=== PATIENT | male | born 1980 | race African-American/Black ===

== ENCOUNTER 2017-07-28 07:18 | Day surgery (SDC) | payer OTHER ==
[~2017-07-28 07:18] MED LIST: Lactated Ringers 1,000 ML IV SCH
[2017-07-28] MEDS ORDERED: Propofol 200 MG/20 ML SDV IV ONE (08:30)
[2017-07-28] MEDS ORDERED: Lidocaine 2% 100 MG/5 ML Syringe IVPUSH ONE (08:30)
[2017-07-28] MEDS ORDERED: Midazolam 1 MG/ML 2 ML SDV IV ONE (08:30)
--- NOTE | 2017-07-28 09:30 | PCM.OPNOTE ---
- General Post-Op/Procedure Note Date of Surgery/Procedure: 07/28/17 Operative Procedure(s): egd with bx. c scope with bx Findings: duodenitis gastritis proctitis Pre Op Diagnosis: bleeding per rectum Post-Op Diagnosis: duodenitis. gastritis. proctitis Anesthesia Technique: HEATHER Primary Surgeon: Sav Vazquez Anesthesia Provider: Jens Pozo Pathology: stomach, duodenum and rectum Complications: None Condition: Good Free Text/Narrative:: see dictation
[2017-07-28 11:28] VITALS: BP 118/66
--- NOTE | 2017-07-28 15:11 | OR ---
DATE OF OPERATION: 07/28/2017 SURGEON: Sav Vazquez MD PROCEDURE PERFORMED: Esophagogastroduodenoscopy and colonoscopy, both with cold forceps biopsy. PREOPERATIVE DIAGNOSIS: Bleeding per rectum. POSTOPERATIVE DIAGNOSIS: Gastric duodenitis and proctitis. INDICATIONS FOR PROCEDURE: This is a 36-year-old black male who is referred with a history of intermittent blood per rectum ranging from both black to dark red. In addition, he has a history of pancreatitis but is having some epigastric discomfort as well. As a result, he was offered upper and lower endoscopy. DESCRIPTION OF PROCEDURE: After an excellent IV sedation was administered, the bite block was inserted. The flexible endoscope was passed without difficulty down the patient's esophagus into the stomach. Stomach was insufflated. Scope was passed through the pylorus to the second portion duodenal and slowly withdrawn. The following findings were noted: In the second portion of the duodenum in the area of the ampulla of Vater, there was an area of irritation. This was biopsied and submitted in a separate container. The stomach demonstrated some diffuse mild gastritis and this was biopsied as well. GE junction measured at 40 cm and the esophagus was unremarkable. Attention was then turned to the colon. Digital rectal exam was performed. Flexible colonoscope was then inserted and advanced to the cecum. The prep was excellent. The following findings were noted: Ascending colon, unremarkable. Transverse colon, unremarkable. Descending colon, unremarkable. Sigmoid, unremarkable. Rectum, erythema and some punctate bleeding in the distal portion was encountered and this was biopsied with cold biopsy forceps and sent for permanent. Colon was deflated. Scope was removed. Patient tolerated the procedure well, was taken to recovery room in good condition. /[id number] /MODL
== END 2017-07-28 10:50 | disposition home or self-care (01) ==
LOC: FB.SDS 07:18
PROVIDERS: ATTEND Surgery
DX: K29.80 Duodenitis without bleeding (principal); K29.50 Unspecified chronic gastritis without bleeding; K62.89 Other specified diseases of anus and rectum; K85.20 Alcohol induced acute pancreatitis without necrosis or infection; I10 Essential (primary) hypertension; Z86.19 Personal history of other infectious and parasitic diseases; Z79.899 Other long term (current) drug therapy; Z98.890 Other specified postprocedural states
CPT/HCPCS: 43239; 45380; 88305; 88342; J2250; J2704; J7120

== ENCOUNTER 2018-12-08 03:00 | Emergency (ER) | payer BC, OTHER ==
[2018-12-08] MEDS ORDERED: Lidocaine 2% 20 ML MDV INJECT ONE (03:01)
[2018-12-08] MEDS ORDERED: Diphtheria,Pertussis(Acell),Tetanus Vaccine 0.5 ML SDV IM ONE (03:23)
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
[2018-12-08 04:06] VITALS: BP 115/88
== END 2018-12-08 04:00 | disposition home or self-care (01) ==
LOC: FB.ED 03:00
DX: S01.01XA Laceration without foreign body of scalp, initial encounter (principal); F10.129 Alcohol abuse with intoxication, unspecified; I10 Essential (primary) hypertension; Z23 Encounter for immunization; Y08.89XA Assault by other specified means, initial encounter
CPT/HCPCS: 12002; 90471; 90715; 99284; J2001; 90472

== ENCOUNTER 2020-03-18 08:18 | Day surgery (SDC) | payer BC ==
[~2020-03-18 08:18] MED LIST changes: +Sodium Chloride 0.9% 10 ML Syringe FLUSH PRN
[2020-03-18] MEDS ORDERED: Midazolam 1 MG/ML 2 ML SDV IV ONE (08:19)
[2020-03-18] MEDS ORDERED: Propofol 200 MG/20 ML SDV IV ONE (08:19)
[2020-03-18] MEDS ORDERED: Ketamine 500 mg/10 ML MDV IV ONE (08:19)
[2020-03-18] MEDS ORDERED: Lidocaine 2% 5 ML SDV INJECT ONE (08:19)
--- NOTE | 2020-03-18 10:12 | PCM.OPNOTE ---
- General Post-Op/Procedure Note Date of Surgery/Procedure: 03/18/20 Operative Procedure(s): c scope Findings: nl exam Pre Op Diagnosis: hx of abd pain , colon polyp Post-Op Diagnosis: nl exam Anesthesia Technique: MAC Primary Surgeon: Sav Vazquez Anesthesia Provider: Noelle Nicholson Pathology: none Complications: None Condition: Good Free Text/Narrative:: see dictation
[2020-03-18 11:33] VITALS: BP 126/95; PULSE 64
--- NOTE | 2020-03-19 08:04 | OR ---
DATE OF OPERATION: 03/18/2020 SURGEON: Sav Vazquez MD PROCEDURE PERFORMED: Colonoscopy. PREOPERATIVE DIAGNOSES: 1. History of left-sided abdominal pain. 2. Questionable history of colon polyp. POSTOPERATIVE DIAGNOSIS: Normal scope. INDICATIONS FOR PROCEDURE: This is a 39-year-old male referred with a history of some left-sided abdominal pain. On questioning, he has a questionable history of an adenomatous polyp. We recommended an endoscopy as part of his workup. DESCRIPTION OF OPERATION: After an excellent IV sedation was administered, digital rectal exam was performed. No marked abnormality was noted. Flexible colonoscope was inserted and advanced to the cecum. The prep was adequate. There were some areas of particulate food particles. We were able to irrigate and get a fair view of the intestine. The following findings were noted: Ascending colon, unremarkable. Transverse colon, unremarkable. Descending colon, unremarkable. Sigmoid and rectum, unremarkable. Colon was deflated as the scope was removed. The patient tolerated the procedure well, was taken to Recovery. /[id number] /BHAVINL
== END 2020-03-18 11:45 | disposition home or self-care (01) ==
LOC: FB.SDS 08:18
PROVIDERS: ATTEND Surgery
DX: R10.12 Left upper quadrant pain (principal); K62.5 Hemorrhage of anus and rectum; I10 Essential (primary) hypertension; F41.9 Anxiety disorder, unspecified; F32.9 Major depressive disorder, single episode, unspecified; Z20.828 Contact with and (suspected) exposure to other viral communicable diseases; Z98.890 Other specified postprocedural states; Z79.899 Other long term (current) drug therapy
CPT/HCPCS: J2001; J2250; J2704; J7120

== ENCOUNTER 2020-08-28 12:01 | Emergency (ER) | payer BC ==
[2020-08-28 12:14] VITALS: BP 107/48; PULSE 71
[2020-08-28] MEDS ORDERED: Sodium Chloride 0.9% 10 ML Syringe FLUSH PRN (12:32)
[2020-08-28] MEDS ORDERED: Ondansetron 4 MG/2 ML SDV IVPUSH ONE (12:48)
--- NOTE | 2020-08-28 12:50 | EDM.PDOC ---
ED HPI GENERAL MEDICAL PROBLEM - General Chief Complaint: Respiratory Problem Stated Complaint: COVID SYMPTOMS Time Seen by Provider: 08/28/20 12:05 Source of Information: Reports: Patient History Limitations: Reports: No Limitations - History of Present Illness INITIAL COMMENTS - FREE TEXT/NARRATIVE: Patient presented to the ED because of fever/chills, N/V/D which started 5 days ago. He also c/o persistent cough and dyspnea although his oxygen saturation is normal. Bilateral posterior shoulder Pain Score (Numeric/FACES): 9 - Related Data Allergies Allergy/AdvReac Type Severity Reaction Status Date / Time No Known Allergies Allergy Verified 08/28/20 12:08 Home Meds: Home Meds Citalopram Hydrobromide [Celexa] 20 mg PO DAILY 03/17/20 [History] Ibuprofen [Ibu] 800 mg PO Q8H PRN #30 tablet 08/28/20 [Rx] Ondansetron [Zofran ODT] 4 mg PO Q4H PRN #7 tab.dis 08/28/20 [Rx] metFORMIN [Glucophage XR] 500 mg PO WITHDINNER 08/28/20 [History] Past Medical History HEENT History: Reports: None Cardiovascular History: Respiratory History: Reports: None Gastrointestinal History: Reports: Helicobacter Pylori, Pancreatitis Genitourinary History: Reports: None 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 Musculoskeletal History: Reports: None Neurological History: Reports: None Psychiatric History: Reports: Anxiety, Depression Endocrine/Metabolic History: Reports: None, Diabetes, Type II Hematologic History: Reports: None Immunologic History: Reports: None Oncologic (Cancer) History: Reports: None Dermatologic History: Reports: None - Infectious Disease History Infectious Disease History: Reports: Helicobacter Pylori, Other (See Below) Other Infectious Disease History: CLAMYDIA - Past Surgical History Head Surgeries/Procedures: Reports: None GI Surgical History: Reports: Colonoscopy, EGD, ERCP Social & Family History - Family History Family Medical History: Noncontributory - Tobacco Use Tobacco Use Status *Q: Never Tobacco User - Caffeine Use Caffeine Use: Reports: Coffee, Energy Drinks, Tea - Recreational Drug Use Recreational Drug Use: No ED ROS GENERAL - Review of Systems Review Of Systems: See Below Constitutional: Reports: Fever, Chills, Malaise, Weakness HEENT: Reports: No Symptoms Respiratory: Reports: Shortness of Breath, Cough Cardiovascular: Reports: No Symptoms Endocrine: Reports: No Symptoms GI/Abdominal: Reports: Diarrhea, Nausea, Vomiting : Reports: No Symptoms, Discharge Musculoskeletal: Reports: No Symptoms, Neck Pain Skin: Reports: No Symptoms, Cyanosis Neurological: Reports: No Symptoms Psychiatric: Reports: No Symptoms Hematologic/Lymphatic: Reports: No Symptoms Immunologic: Reports: No Symptoms ED EXAM, GENERAL - Physical Exam Exam: See Below Exam Limited By: No Limitations General Appearance: Alert, No Apparent Distress Eye Exam: Bilateral Eye: PERRL Ears: Normal External Exam Nose: Normal Inspection, Normal Mucosa Throat/Mouth: Normal Inspection, Normal Lips, Normal Teeth Head: Atraumatic, Normocephalic Neck: Normal Inspection, Supple, Non-Tender, Full Range of Motion Respiratory/Chest: No Respiratory Distress, Lungs Clear, Normal Breath Sounds Cardiovascular: Normal Peripheral Pulses, Regular Rate, Rhythm, No Edema, No Gallop GI/Abdominal: Normal Bowel Sounds, Soft, Non-Tender, No Organomegaly Extremities: Normal Inspection, Normal Range of Motion, Non-Tender Neurological: Alert, Oriented, CN II-XII Intact Course - Vital Signs Text/Narrative:: Labs/CXR result was discussed with patient NS 1 L bolus Zofran 4 mg IV x1 Toradol 60 mg IM x1 Last Recorded V/S: Last Vital Signs Temp 36.3 C 08/28/20 12:01 Pulse 71 08/28/20 12:01 Resp 20 08/28/20 12:01 BP 107/48 L 08/28/20 12:01 Pulse Ox 98 08/28/20 12:01 - Orders/Labs/Meds Orders: Active Orders 24 hr Category Date Time Status Chest 1V Frontal [CR] Stat Exams 08/28/20 12:32 Ordered Ketorolac [Toradol] Med 08/28/20 14:10 Once 30 mg IVPUSH ONETIME ONE Sodium Chloride 0.9% [Normal Saline] 1,000 ml Med 08/28/20 13:00 Active IV ASDIRECTED Sodium Chloride 0.9% [Saline Flush] Med 08/28/20 12:32 Active 10 ml FLUSH ASDIRECTED PRN Isolation [COMM] Routine Oth 08/28/20 12:33 Ordered Saline Lock Insert [OM.PC] Routine Oth 08/28/20 12:32 Ordered Medication Orders Sodium Chloride (Normal Saline) 1,000 mls @ 999 mls/hr IV ASDIRECTED RICK Last Admin: 08/28/20 13:20 Dose: 999 mls/hr Documented by: DRKEVIN Ketorolac Tromethamine (Toradol) 30 mg IVPUSH ONETIME ONE Stop: 08/28/20 14:11 Sodium Chloride (Saline Flush) 10 ml FLUSH ASDIRECTED PRN PRN Reason: Keep Vein Open Labs: Laboratory Tests 08/28/20 08/28/20 08/28/20 Range/Units 12:48 12:48 12:48 WBC 4.2 L (4.5-12.0) X10-3/uL RBC 5.11 (4.30-5.75) x10(6)uL Hgb 15.6 (13.5-17.8) g/dL Hct 46.4 (30.0-51.3) % MCV 90.9 (80-96) fL MCH 30.5 (27.7-33.6) pg MCHC 33.6 (32.2-35.4) g/dL RDW 12.9 (11.5-15.5) % Plt Count 405 H (125-369) X10(3)uL MPV 7.2 L (7.4-10.4) fL Neut % (Auto) 70.0 (46-82) % Lymph % (Auto) 16.9 (13-37) % [place] % (Auto) 12.2 H (4-12) % Eos % (Auto) 0 L (1.0-5.0) % Baso % (Auto) 1 (0-2) % Neut # (Auto) 3.0 (1.6-8.3) # Lymph # (Auto) 0.7 (0.6-5.0) # [place] # (Auto) 0.5 (0.0-1.3) # Eos # (Auto) 0.0 (0.0-0.8) # Baso # (Auto) 0.0 (0.0-0.2) # Sodium 137 (135-145) mmol/L Potassium 3.5 (3.5-5.3) mmol/L Chloride 96 L (100-110) mmol/L Carbon Dioxide 31 (21-32) mmol/L BUN 23 H (7-18) mg/dL Creatinine 1.1 (0.70-1.30) mg/dL Est Cr Clr Drug Dosing 100.88 mL/min Estimated GFR (MDRD) > 60 (>60) BUN/Creatinine Ratio 20.9 H (9-20) Glucose 152 H (80-116) mg/dL Calcium 9.5 (8.6-10.2) mg/dL Total Bilirubin 0.7 (0.1-1.3) mg/dL AST 46 H (5-25) IU/L ALT 36 (12-36) U/L Alkaline Phosphatase 51 L (56-112) IU/L C-Reactive Protein 21.3 H* (0.5-0.9) mg/dL Total Protein 8.8 H (6.0-8.0) g/dL Albumin 2.7 L (3.5-5.2) g/dL Globulin 6.1 g/dL Albumin/Globulin Ratio 0.4 SARS-CoV-2 RNA (COMPA) (NEGATIVE) 08/28/20 Range/Units 12:50 WBC (4.5-12.0) X10-3/uL RBC (4.30-5.75) x10(6)uL Hgb (13.5-17.8) g/dL Hct (30.0-51.3) % MCV (80-96) fL MCH (27.7-33.6) pg MCHC (32.2-35.4) g/dL RDW (11.5-15.5) % Plt Count (125-369) X10(3)uL MPV (7.4-10.4) fL Neut % (Auto) (46-82) % Lymph % (Auto) (13-37) % [place] % (Auto) (4-12) % Eos % (Auto) (1.0-5.0) % Baso % (Auto) (0-2) % Neut # (Auto) (1.6-8.3) # Lymph # (Auto) (0.6-5.0) # [place] # (Auto) (0.0-1.3) # Eos # (Auto) (0.0-0.8) # Baso # (Auto) (0.0-0.2) # Sodium (135-145) mmol/L Potassium (3.5-5.3) mmol/L Chloride (100-110) mmol/L Carbon Dioxide (21-32) mmol/L BUN (7-18) mg/dL Creatinine (0.70-1.30) mg/dL Est Cr Clr Drug Dosing mL/min Estimated GFR (MDRD) (>60) BUN/Creatinine Ratio (9-20) Glucose (80-116) mg/dL Calcium (8.6-10.2) mg/dL Total Bilirubin (0.1-1.3) mg/dL AST (5-25) IU/L ALT (12-36) U/L Alkaline Phosphatase (56-112) IU/L C-Reactive Protein (0.5-0.9) mg/dL Total Protein (6.0-8.0) g/dL Albumin (3.5-5.2) g/dL Globulin g/dL Albumin/Globulin Ratio SARS-CoV-2 RNA (COMPA) Positive H (NEGATIVE) Meds: Medications Generic Name Dose Route Start Last Admin Trade Name Freq PRN Reason Stop Dose Admin Sodium Chloride 1,000 mls @ 999 mls/hr 08/28/20 13:00 08/28/20 13:20 Normal Saline IV 999 mls/hr ASDIRECTED RICK Administration Ketorolac Tromethamine 30 mg 08/28/20 14:10 Toradol IVPUSH 08/28/20 14:11 ONETIME ONE Sodium Chloride 10 ml 08/28/20 12:32 Saline Flush FLUSH ASDIRECTED PRN Keep Vein Open Discontinued Medications Generic Name Dose Route Start Last Admin Trade Name Freq PRN Reason Stop Dose Admin Ondansetron HCl 4 mg 08/28/20 12:48 Zofran IVPUSH 08/28/20 12:49 ONETIME ONE Departure - Departure Time of Disposition: 14:30 Disposition: Home, Self-Care 01 Condition: Good Clinical Impression: COVID-19 - Discharge Information Prescriptions: Ibuprofen [Ibu] 800 mg PO Q8H PRN #30 tablet PRN Reason: Pain Ondansetron [Zofran ODT] 4 mg PO Q4H PRN #7 tab.dis PRN Reason: Nausea Referrals: PCP,None [Ordering Only Provider] - Forms: ED Department Discharge Sepsis Event Note (ED) - Evaluation Sepsis Screening Result: No Definite Risk - Focused Exam Vital Signs: Vital Signs Temp Pulse Resp BP Pulse Ox 08/28/20 12:01 36.3 C 71 20 107/48 L 98 - My Orders Last 24 Hours: My Active Orders 08/28/20 12:32 Chest 1V Frontal [CR] Stat Sodium Chloride 0.9% [Saline Flush] 10 ml FLUSH ASDIRECTED PRN Saline Lock Insert [OM.PC] Routine 08/28/20 12:33 Isolation [COMM] Routine 08/28/20 13:00 Sodium Chloride 0.9% [Normal Saline] 1,000 ml IV ASDIRECTED 08/28/20 14:10 Ketorolac [Toradol] 30 mg IVPUSH ONETIME ONE - Assessment/Plan Last 24 Hours: My Active Orders 08/28/20 12:32 Chest 1V Frontal [CR] Stat Sodium Chloride 0.9% [Saline Flush] 10 ml FLUSH ASDIRECTED PRN Saline Lock Insert [OM.PC] Routine 08/28/20 12:33 Isolation [COMM] Routine 08/28/20 13:00 Sodium Chloride 0.9% [Normal Saline] 1,000 ml IV ASDIRECTED 08/28/20 14:10 Ketorolac [Toradol] 30 mg IVPUSH ONETIME ONE
[2020-08-28] MEDS ORDERED: Sodium Chloride 0.9% 1,000 ML IV SCH (13:00)
[2020-08-28] MEDS ORDERED: Ketorolac 30 MG/ML SDV IVPUSH ONE (14:10)
--- NOTE | 2020-08-28 15:05 | CR ---
INDICATION: Cough, dyspnea, positive coronavirus. CHEST, ONE VIEW: An AP upright portable view of the chest was obtained 08/28/20 - no comparisons. The heart appears enlarged, but is emphasized by poor inspiration and the AP positioning. Patchy areas of infiltration are noted, some peripheral and could be related to positive COVID-19 test - COVID pneumonia. A mild degree of pulmonary vascular congestion may be present additionally. No gross pleural effusion was seen. IMPRESSION: 1. Scattered patchy infiltration, compatible with COVID-19 positive, but should be correlated clinically. 2. ASHD with cardiomegaly and possible mild pulmonary vascular congestion - CHF. MTDD
== END 2020-08-28 14:45 | disposition home or self-care (01) ==
LOC: FB.ED 12:01
DX: U07.1 COVID-19 (principal); F41.9 Anxiety disorder, unspecified; F32.9 Major depressive disorder, single episode, unspecified; E11.9 Type 2 diabetes mellitus without complications; Z79.84 Long term (current) use of oral hypoglycemic drugs; Z79.899 Other long term (current) drug therapy
CPT/HCPCS: 36415; 71045; 80053; 85025; 86140; 87635; 87804; 96374; 96375; 99285; J1885; J2405; J7030; 99284; U0002

== ENCOUNTER 2023-04-19 06:30 | Day surgery (SDC) | payer MEDICAID, OTHER ==
[2023-04-19] MEDS ORDERED: Propofol 200 MG/20 ML SDV IV ONE (06:31)
[2023-04-19] MEDS ORDERED: Simethicone Drops 40 MG/0.6 ML 30 ML Bottle PO ONE (07:32)
[2023-04-19 08:44] VITALS: BP 158/110; PULSE 70
== END 2023-04-19 08:28 | disposition home or self-care (01) ==
LOC: FB.SDS 06:30
PROVIDERS: ATTEND Surgery
DX: K92.1 Melena (principal); R10.32 Left lower quadrant pain; I10 Essential (primary) hypertension; E11.9 Type 2 diabetes mellitus without complications; E87.1 Hypo-osmolality and hyponatremia; Z79.899 Other long term (current) drug therapy; Z87.828 Personal history of other (healed) physical injury and trauma; Z87.19 Personal history of other diseases of the digestive system
CPT/HCPCS: 00811; 82947; A9270-GY; J2704; J7120